=== PATIENT | male | born 1990 | race Two or more races ===

== ENCOUNTER 2017-12-21 22:33 | Emergency (ER) | payer BC, OTHER ==
[~2017-12-21] VITALS: Ht 182.9 cm; Wt 124.6 kg
[~2017-12-21 22:33] MED LIST: CIPRO500 MG PO; FLAGYL500 MG PO
[2017-12-21 23:13] LABS: HEMATOCRIT 42.8 % (38.0-50.0); HEMOGLOBIN 14.8 G/DL (12.5-16.6); MCH 31.9 PG (29.0-34.0); MCHC 34.6 G/DL (30.0-36.0); MCV 92.2 FL (86-99); PLATELET COUNT 247 K/uL (156-360); RBC DIS.WIDTH-CV 11.8 % (11.8-14.6); RBC DIS.WIDTH-SD 39.3 % (39-53); RED BLOOD COUNT 4.64 M/uL (4.00-5.50); WHITE BLOOD COUNT 8.4 K/uL (4.1-10.2)
[2017-12-21 23:24] LABS: CHLORIDE 106 mEq/L (99-109); POTASSIUM 3.9 mEq/L (3.7-5.4); SODIUM 142 mEq/L (136-147)
[2017-12-21 23:26] LABS: GLUCOSE 111 mg/dL (70-99)
[2017-12-21 23:30] LABS: CREATININE 1.3 mg/dL (0.6-1.3); GFR ESTIMATE (CALCULATED) > 59 mL/min/ (58.99-99999)
[2017-12-21 23:31] LABS: UREA NITROGEN (BUN) 12 mg/dL (9-23)
[2017-12-21 23:35] LABS: TROP-I INTERPRETATION NEGATIVE; TROPONIN-I 0.02 ng/mL (0.0-0.30)
[2017-12-22 00:36] VITALS: BP 139/76
== END 2017-12-22 02:23 | disposition left against medical advice (07) ==
LOC: EME 22:33
DX: R07.9 Chest pain, unspecified (principal); Z53.21 Procedure and treatment not carried out due to patient leaving prior to being seen by health care provider
CPT/HCPCS: 71046; 80048; 84484; 85027; 93005